=== PATIENT | female | born 1985 ===

== ENCOUNTER → 2025-04-19 | Outpatient (CLI) | payer BC | LOC: LAB SHORT 17:19 → LAB 17:19 | DX: O09.90 Supervision of high risk pregnancy, unspecified, unspecified trimester (principal) | CPT/HCPCS: 87081; 87147 ==

== ENCOUNTER → 2025-05-04 | Outpatient (CLI) | payer BC | LOC: LAB SHORT 16:15 → LAB 16:15 | DX: O09.90 Supervision of high risk pregnancy, unspecified, unspecified trimester (principal) | CPT/HCPCS: 87081; 87150 ==